=== PATIENT | female | born 1985 | race Caucasian/White ===

== ENCOUNTER 2018-03-31 | Emergency (ER) | payer MEDICAID ==
[2018-03-31] MEDS ORDERED: XYLOCAINE 2% Uro-Jet TOP ONE (00:24)
[2018-03-31] MEDS ORDERED: XYLOCAINE 2% Uro-Jet ONE (00:27)
--- NOTE | 2018-03-31 00:29 | ERPHSYRPT ---
- History of Present Illness Time Seen by Provider: 03/31/18 00:25 Source: patient Exam Limitations: no limitations Patient Subjective Stated Complaint: earache left ear Triage Nursing Assessment: Patient ambulated to ED et transferred to bed per self. Patient complains of earache on and off for a couple weeks, with the pain getting worse today. Patient A+O X 3. Patient noted to have a dark foreign object in ear cannal. Patient states she had slight drainage to left ear. Physician History: This is a 32-year-old white female previously healthy complains of pain in her left ear for 2 weeks feels as something is in it. She states that over the past 2 days she's had her sister try to remove whatever it is with a paper clip and irrigating the left ear. She thinks that she has a bug in her ear. She does not feel any movement or him patient denies any other complaints. Past medical history is negative Past surgical history includes appendectomy and tubal ligation. .. Timing/Duration: week(s) (symptoms for 2 weeks) Severity: mild Modifying Factors: Improves With: other (patient had family member try to remove what she thinks is a bug over the last couple of days using both irrigation and a paper clip.) Associated Symptoms: other (possible bug in left ear for 2 weeks), No nausea, No vomiting, No abdominal pain, No shortness of breath, No heartburn, No diaphoresis, No cough, No chills, No chest pain, No fever, No headaches, No loss of appetite, No malaise, No rash, No syncope, No seizure, No weakness Allergies/Adverse Reactions: Penicillins Allergy (Verified 03/31/18 00:16) Sulfa (Sulfonamide Antibiotics) Allergy (Verified 03/31/18 00:16) Home Medications: No Reportable Medications [No Reported Medications] 03/31/18 [History] Hx Tetanus, Diphtheria Vaccination/Date Given: No Hx Influenza Vaccination/Date Given: No Hx Pneumococcal Vaccination/Date Given: No Immunizations Up to Date: Yes - Review of Systems Constitutional: No Fever, No Chills Eyes: No Symptoms Ears, Nose, & Throat: Ear Pain (Left ear pain), Other (possible blood in left ear for 2 weeks), No Ear Discharge, No Hearing Changes, No Tinnitus, No Nose Pain, No Nose Congestion, No Nose Discharge, No Sinus Drainage, No Epistaxis, No Mouth Pain, No Mouth Swelling, No Loose Teeth, No Throat Pain, No Throat Swelling, No Hoarse, No Painful Swallowing, No Snoring, No Stridor Respiratory: No Cough, No Dyspnea Cardiac: No Chest Pain, No Edema, No Syncope Abdominal/Gastrointestinal: No Abdominal Pain, No Nausea, No Vomiting, No Diarrhea Genitourinary Symptoms: No Dysuria Musculoskeletal: No Back Pain, No Neck Pain Skin: No Rash Neurological: No Dizziness, No Focal Weakness, No Sensory Changes Psychological: No Symptoms Endocrine: No Symptoms All Other Systems: Reviewed and Negative - Past Medical History Pertinent Past Medical History: No Neurological History: No Pertinent History ENT History: No Pertinent History Cardiac History: No Pertinent History Respiratory History: No Pertinent History Endocrine Medical History: No Pertinent History Musculoskeletal History: No Pertinent History GI Medical History: No Pertinent History History: No Pertinent History Psycho-Social History: No Pertinent History Female Reproductive Disorders: No Pertinent History - Past Surgical History Past Surgical History: Yes Neuro Surgical History: No Pertinent History Cardiac: No Pertinent History Respiratory: No Pertinent History Gastrointestinal: Appendectomy Genitourinary: No Pertinent History Musculoskeletal: No Pertinent History Female Surgical History: Tubal Ligation - Social History Smoking Status: Never smoker Exposure to second hand smoke: No Patient Lives Alone: No - Female History Hx Last Menstrual Period: Ablasion Hx Now: No - Nursing Vital Signs Nursing Vital Signs: Initial Vital Signs Temperature 98.6 F 03/31/18 00:06 Pulse Rate 71 03/31/18 00:06 Respiratory Rate 20 03/31/18 00:06 Blood Pressure 144/100 03/31/18 00:06 O2 Sat by Pulse Oximetry 97 03/31/18 00:06 Pain Scale Pain Intensity 2 - Physical Exam General Appearance: no apparent distress, alert Eye Exam: PERRL/EOMI, eyes nml inspection Ears, Nose, Throat Exam: TMs normal, other (brownish material left ear canal towards bottom of ear canal) Neck Exam: normal inspection, non-tender, supple, full range of motion Respiratory Exam: normal breath sounds, lungs clear, No respiratory distress Cardiovascular Exam: regular rate/rhythm, normal heart sounds, normal peripheral pulses Gastrointestinal/Abdomen Exam: soft, normal bowel sounds, No tenderness, No mass Back Exam: normal inspection, normal range of motion, No CVA tenderness, No vertebral tenderness Extremity Exam: normal inspection, normal range of motion, pelvis stable Neurologic Exam: alert, oriented x 3, cooperative, grey washer II-XII nml as tested, normal mood/affect, nml cerebellar function, nml station & gait, sensation nml, No motor deficits Skin Exam: normal color, warm, dry, No rash Lymphatic Exam: No adenopathy SpO2 Interpretation: normal (97%) SpO2: 97 - Course Nursing assessment & vital signs reviewed: Yes Ordered Tests: Medication Summary Discontinued Medications Generic Name Dose Route Start Last Admin Trade Name Gracie PRN Reason Stop Dose Admin Lidocaine HCl 200 mg 03/31/18 00:24 03/31/18 00:31 Xylocaine 2% Uro-Jet TOP 03/31/18 00:25 200 mg STAT ONE Administration Lidocaine HCl Confirm 03/31/18 00:27 Xylocaine 2% Uro-Jet Administered 03/31/18 00:28 Dose 200 mg .ROUTE .STK-MED ONE Ofloxacin 5 ml 03/31/18 01:35 Floxin Otic 5 Ml OT 03/31/18 01:36 STAT ONE Ondansetron HCl 4 mg 03/31/18 00:54 03/31/18 00:57 Zofran Odt 4 Mg PO 03/31/18 00:55 4 mg STAT ONE Administration Ondansetron HCl Confirm 03/31/18 00:54 Zofran Odt 4 Mg Administered 03/31/18 00:55 Dose 4 mg .ROUTE .STK-MED ONE - Progress Progress: improved Progress Note: 03/31/18 01:36 32-year-old white female who arrives with complaint of what she thinks is a bug in her left ear symptoms for 2 weeks she states that her sister's been trying to remove it with irrigation and with a paperclip over the last couple days this has been unsuccessful. On physical examination patient's left ear canal has what appears to be a brown portion of the insect debris. This is a very close to the tympanic membrane. Left ear is instilled with 2% viscous lidocaine. And attempt is made to irrigate the left ear with saline This was unsuccessful. Therefore a #14 suction catheter was modified and use to try to remove the debris with suction as well. This was unsuccessful as well. It is felt that the piece of insect debris is to close to the tympanic membrane to warrant use of a alligator forceps. And it is felt that the patient will need to be referred to an ear nose and throat physician. Therefore patient will be placed on Floxin otic solution. 5 drops in the left ear twice a day for 7 days. She is to contact Dr. Ye tomorrow and arrange for follow-up appointment. - Departure Time of Disposition: 01:38 Departure Disposition: Home Clinical Impression: insect debris left ear canal Acute foreign body of left ear canal Qualifiers: Encounter type: initial encounter Qualified Code(s): T16.2XXA - Foreign body in left ear, initial encounter Condition: Fair Critical Care Time: No Referrals: Provider,Unknown [Primary Care Provider] - Additional Instructions: Return home. Floxin otic drops 5 drops in the left ear twice a day for [address] Ye ( ear nose and throat physician [facility]) tomorrow and schedule appointment , . return for acute distress or for severe symptoms.
[2018-03-31] MEDS ORDERED: ZOFRAN ODT 4 MG ONE (00:54)
[2018-03-31] MEDS ORDERED: ZOFRAN ODT 4 MG PO ONE (00:54)
[2018-03-31] MEDS ORDERED: Floxin Otic 5 ML OT ONE (01:35)
[2018-03-31 01:40] VITALS: BP 133/80; PULSE 68
[2018-03-31 01:43] VITALS: O2SAT 97
== END 2018-03-31 02:05 | disposition home or self-care (01) ==
LOC: ED
DX: T16.2XXA Foreign body in left ear, initial encounter (principal)
CPT/HCPCS: 99283; Q0162; A9270-GY